=== PATIENT | male | born 1990 | race Caucasian/White ===

== ENCOUNTER 2019-02-18 21:09 | Emergency (ER) | payer OTHER ==
[2019-02-18] MEDS ORDERED: diphenhydrAMINE HCL 50 MG CAPSULE PO ONE (21:30)
--- NOTE | 2019-02-18 21:30 | PDOC ---
Rapid Medical Evaluation Time Seen by Provider: 02/18/19 21:28 Medical Evaluation: 02/18/19 21:28 I have performed a brief in-person evaluation of this patient. The patient presents with a chief complaint of: rash, itching, acute onset just now Pertinent physical exam findings: diffuse erythematous rash I have ordered the following: benadryl The patient will proceed to the ED for further evaluation. 02/18/19 21:37 pt now reports discomfort to throat and tongue. reassessed, no visible swelling to face/tongue/lips/mouth/uvula, no resp distress. meds changed to IV, escalated to level 3
[2019-02-18] MEDS ORDERED: DEXAMETHASONE LIQUID 0.5 MG/5 ML 240 ML BULK BOTTLE PO ONE (21:31)
[2019-02-18 21:32] VITALS: TEMP 98; BMI 29.1
[2019-02-18] MEDS ORDERED: DEXAMETHASONE SOD PHOSPHATE 10 MG/1 ML VIAL IVPUSH ONE (21:38)
[2019-02-18] MEDS ORDERED: DEXAMETHASONE SOD PHOSPHATE 10 MG/1 ML VIAL ONE (22:02)
[2019-02-18] MEDS ORDERED: diphenhydrAMINE HCL 25 MG CAPSULE (FP) PO ONE ×2 (22:03→22:12)
[2019-02-18] MEDS ORDERED: predniSONE 20 MG TABLET (UD) PO ONE (22:03)
[2019-02-18] MEDS ORDERED: predniSONE 20 MG TABLET (UD) ONE (22:12)
--- NOTE | 2019-02-18 23:16 | PDOC ---
History of Present Illness - General Chief Complaint: Allergic Reaction Stated Complaint: ALLEGIC REACTIUON Time Seen by Provider: 02/18/19 21:28 History Source: Patient Exam Limitations: No Limitations Past History - Past Medical History Allergies/Adverse Reactions: Allergies Allergy/AdvReac Type Severity Reaction Status Date / Time No Known Allergies Allergy Verified 02/18/19 21:32 Home Medications: Ambulatory Orders Prednisone [Deltasone] 40 mg PO DAILY #8 tablet 02/18/19 COPD: No CHF: No - Immunization History Immunization Up to Date: Yes - Suicide/Smoking/Psychosocial Hx Smoking History: Unknown if ever smoked Have you smoked in the past 12 months: No Information on smoking cessation initiated: No Hx Alcohol Use: No Drug/Substance Use Hx: No *Physical Exam - Vital Signs Last Vital Signs Temp Pulse Resp BP Pulse Ox 98.0 F 119 H 16 150/95 96 02/18/19 21:30 02/18/19 21:30 02/18/19 21:30 02/18/19 21:30 02/18/19 21:30 - Physical Exam General Appearance: No: Apparent Distress HEENT: positive: Pharynx Normal, Other (no angioedema) Respiratory/Chest: positive: Lungs Clear, Normal Breath Sounds. negative: Respiratory Distress Cardiovascular: positive: Regular Rhythm, Regular Rate, S1, S2. negative: Murmur Integumentary: positive: Hives, Rash. negative: Petechiae, Swelling, Ecchymosis , Bruising Neurologic: positive: Alert, Normal Mood/Affect ED Treatment Course - Medications Given in the ED: ED Medications Discontinued Medications Generic Name Dose Route Start Last Admin Trade Name Reddy PRN Reason Stop Dose Admin Dexamethasone 10 mg 02/18/19 21:31 02/18/19 22:10 Decadron Liquid - PO 02/18/19 21:32 Not Given ONCE ONE Dexamethasone Sodium Phosphate 10 mg 02/18/19 21:38 02/18/19 22:08 Decadron Injection - IVPUSH 02/18/19 21:39 Not Given ONCE ONE Diphenhydramine HCl 50 mg 02/18/19 21:30 02/18/19 22:10 Benadryl - PO 02/18/19 21:31 Not Given ONCE ONE Diphenhydramine HCl 50 mg 02/18/19 21:38 02/18/19 22:09 Benadryl Injection - IVPUSH 02/18/19 21:39 Not Given ONCE ONE Diphenhydramine HCl 50 mg 02/18/19 22:03 02/18/19 22:17 Benadryl - PO 02/18/19 22:04 50 mg ONCE ONE Administration Prednisone 60 mg 02/18/19 22:03 02/18/19 22:17 Deltasone - PO 02/18/19 22:04 60 mg ONCE ONE Administration Medical Decision Making - Medical Decision Making 28 y/o M with no sig pmh presents with diffuse itchy rash that started around 8 PM. States was eating food and the only thing new he ate was spicy mustard. Denies recent travel, use of new food/other products/meds, sob, cp, abd pain, n/ v/d. Allergic urticaria - given Benadryl and Prednisone On reassessment, notable improvement of rash Stable for dc 02/18/19 23:11 *DC/Admit/Observation/Transfer Diagnosis at time of Disposition: Allergic urticaria - Discharge Dispostion Disposition: HOME Condition at time of disposition: Stable Decision to Admit order: No - Prescriptions Prescriptions: Prednisone [Deltasone] 40 mg PO DAILY #8 tablet - Referrals - Patient Instructions Printed Discharge Instructions: DI for Hives Additional Instructions: Thank you for choosing [facility]. It was a pleasure taking care of you. Take Benadryl 25-50 mg every 6-8 hours as needed for rash Take Prednisone as prescribed Avoid spicy mustard Follow-up with your doctor in 2 days Return to the Emergency Department if your symptoms worsen or persist or other concerning symptoms. Trae por elegir el [facility]. Fue un placer cuidar de ti. [place] Benadryl 25-50 mg cada 6-8 horas segn sea necesario para la erupcin [place] Prednisone segn lo prescrito Evitar la mostaza picante Seguimiento con rudd mdico en 2 blanco. Regrese al Departamento de Emergencias si zia sntomas empeoran o persisten u otros sntomas relacionados. Print Language: TUVALUAN - Post Discharge Activity
--- NOTE | 2019-02-18 23:38 | PDOC ---
*Physical Exam - Vital Signs Last Vital Signs Temp Pulse Resp BP Pulse Ox 98.0 F 119 H 16 150/95 96 02/18/19 21:30 02/18/19 21:30 02/18/19 21:30 02/18/19 21:30 02/18/19 21:30 ED Treatment Course - Medications Given in the ED: ED Medications Discontinued Medications Generic Name Dose Route Start Last Admin Trade Name Reddy PRN Reason Stop Dose Admin Dexamethasone 10 mg 02/18/19 21:31 02/18/19 22:10 Decadron Liquid - PO 02/18/19 21:32 Not Given ONCE ONE Dexamethasone Sodium Phosphate 10 mg 02/18/19 21:38 02/18/19 22:08 Decadron Injection - IVPUSH 02/18/19 21:39 Not Given ONCE ONE Diphenhydramine HCl 50 mg 02/18/19 21:30 02/18/19 22:10 Benadryl - PO 02/18/19 21:31 Not Given ONCE ONE Diphenhydramine HCl 50 mg 02/18/19 21:38 02/18/19 22:09 Benadryl Injection - IVPUSH 02/18/19 21:39 Not Given ONCE ONE Diphenhydramine HCl 50 mg 02/18/19 22:03 02/18/19 22:17 Benadryl - PO 02/18/19 22:04 50 mg ONCE ONE Administration Prednisone 60 mg 02/18/19 22:03 02/18/19 22:17 Deltasone - PO 02/18/19 22:04 60 mg ONCE ONE Administration Medical Decision Making - Medical Decision Making 02/18/19 23:38 Case reviewed with BOBBY Henriquez Agree with assessment and plan *DC/Admit/Observation/Transfer Diagnosis at time of Disposition: Allergic urticaria - Discharge Dispostion Disposition: HOME Condition at time of disposition: Stable - Prescriptions Prescriptions: Prednisone [Deltasone] 40 mg PO DAILY #8 tablet - Referrals - Patient Instructions Printed Discharge Instructions: DI for Hives Additional Instructions: Thank you for choosing [facility]. It was a pleasure taking care of you. Take Benadryl 25-50 mg every 6-8 hours as needed for rash Take Prednisone as prescribed Avoid spicy mustard Follow-up with your doctor in 2 days Return to the Emergency Department if your symptoms worsen or persist or other concerning symptoms. Trae por elegir el [facility]. Fue un placer cuidar de ti. [place] Benadryl 25-50 mg cada 6-8 horas segn sea necesario para la erupcin [place] Prednisone segn lo prescrito Evitar la mostaza picante Seguimiento con rudd mdico en 2 blanco. Regrese al Departamento de Emergencias si zia sntomas empeoran o persisten u otros sntomas relacionados. Print Language: ROMANIAN - Post Discharge Activity
[2019-02-18 23:48] VITALS: BP 122/73; PULSE 90
== END 2019-02-18 23:48 | disposition home or self-care (01) ==
LOC: JER 21:09
DX: L50.0 Allergic urticaria (principal)
CPT/HCPCS: 99282-25

== ENCOUNTER 2019-04-08 11:21 | Emergency (ER) | payer OTHER ==
[2019-04-08 11:30] VITALS: BP 128/90; PULSE 98; TEMP 98; BMI 26.6
--- NOTE | 2019-04-08 12:19 | PDOC ---
History of Present Illness - General Chief Complaint: Cold Symptoms Stated Complaint: INSOMNIA Time Seen by Provider: 04/08/19 12:13 History Source: Patient - History of Present Illness Initial Comments: 04/08/19 12:33 Medical Biller [id number] Patient is a healthy 28-year-old male who states he's not been sleeping for 4 days due to nasal congestion which seems to have been getting worse, it started one month ago. No fever, no cough, no difficulty breathing. Patient also mentions that he had some diarrhea today, no vomiting and no fever. Patient appears well. GENERAL/CONSTITUTIONAL: No fever, weakness. dizziness HEAD, EYES, EARS, NOSE AND THROAT: No change in vision. No ear pain or discharge. No sore throat. CARDIOVASCULAR: No chest pain RESPIRATORY: No shortness of breath or cough GASTROINTESTINAL: No pain, nausea, vomiting, +diarrhea, no: constipation GENITOURINARY: No dysuria MUSCULOSKELETAL: No neck or back pain SKIN: No rash NEUROLOGIC: No headache, vertigo, loss of consciousness, or loss of sensation. GENERAL: The patient is awake, alert, and fully oriented, in no acute distress. HEAD: Normal with no signs of trauma. EYES: Pupils equal, round and reactive to light, sclera anicteric, conjunctiva clear. ENT: pharynx: no erythema, no exudate, uvula midline NECK: supple CHEST: clear, nontender, rr ABD: soft, nontender BACK: no tenderness or signs of injury EXTREMITIES: Normal range of motion, no edema. NEUROLOGICAL: Normal speech, normal gait. SKIN: Warm, Dry Past History - Past Medical History Allergies/Adverse Reactions: Allergies Allergy/AdvReac Type Severity Reaction Status Date / Time No Known Allergies Allergy Verified 04/08/19 11:29 Home Medications: Ambulatory Orders NK [No Known Home Medication] 04/08/19 COPD: No CHF: No - Immunization History Immunization Up to Date: Yes - Suicide/Smoking/Psychosocial Hx Smoking History: Never smoked Have you smoked in the past 12 months: No Information on smoking cessation initiated: No Hx Alcohol Use: No Drug/Substance Use Hx: No *Physical Exam - Vital Signs Last Vital Signs Temp Pulse Resp BP Pulse Ox 98 F 98 H 18 128/90 100 04/08/19 11:27 04/08/19 11:27 04/08/19 11:27 04/08/19 11:27 04/08/19 11:27 Medical Decision Making - Medical Decision Making 04/08/19 12:35 Healthy 28-year-old male, nonsmoker with 1 month of nasal congestion, he states it is worse in the last 4 days although he looks very comfortable. Patient also complaining of a few bouts of diarrhea today, no fever or vomiting and is able to drink and eat. Patient likely has ALLERGY related symptoms and patient will prefer a pill to a spray. We'll tell him to use Claritin-D once daily and take Benadryl at bedtime to help with sleeping. Also will tell him to follow breath diet and follow-up and give return instructions Discussed issues, findings, results, applicable medications and treatments and follow-up. All these were understood and all questions were answered *DC/Admit/Observation/Transfer Diagnosis at time of Disposition: Seasonal allergies Diarrhea Qualifiers: Diarrhea type: unspecified type Qualified Code(s): R19.7 - Diarrhea, unspecified - Discharge Dispostion Disposition: HOME Condition at time of disposition: Stable - Referrals - Patient Instructions Printed Discharge Instructions: Diarrhea Additional Instructions: You can use the Claritin-D once daily, you can take Benadryl 25-50 mg at bedtime any night it is needed to sleep. He should not need to take the Benadryl every night after a while. If you do you need to be reevaluated. If this does not work, you can try any other [id number] ALLERGY medicine or you can follow-up with your doctor or the ENT listed below. For the diarrhea, you should drink at least 2-3 L of fluid daily, eat simple foods like bread or toast, rice, applesauce and bananas Return to the ER if fever, vomiting or feeling ill Puede usar Claritin-D joann vez al da, puede holly Benadryl 25-50 mg a la hora de acostarse cualquier noche que sea necesario para dormir. No debera necesitar holly el Benadryl todas las noches despus de un tiempo. Si lo hace necesita ser reevaluado. Si esto no funciona, puede probar cualquier otro medicamento de ALERGIA de venta rafaela o puede hacer un seguimiento con rudd mdico o con el ENT que se detalla a continuacin. Para la diarrea, debe beber al menos 2-3 L de lquido al da, comer alimentos simples thea mallory o tostadas, arroz, compota de manzana y pltanos. Regrese a la jorge de emergencias si tiene fiebre, vmitos o malestar. Print Language: JAMAICAN - Post Discharge Activity
== END 2019-04-08 12:47 | disposition home or self-care (01) ==
LOC: JERFT 11:21 → JER 11:21 → JERFT 12:47
DX: J30.2 Other seasonal allergic rhinitis (principal)
CPT/HCPCS: 99281-25

== ENCOUNTER 2019-04-12 08:58 | Emergency (ER) | payer OTHER ==
[2019-04-12 09:02] VITALS: BP 143/89; PULSE 90; BMI 28.0
--- NOTE | 2019-04-12 09:22 | PDOC ---
History of Present Illness - General Chief Complaint: Lethargy Stated Complaint: ABD PAIN Time Seen by Provider: 04/12/19 09:03 History Source: Patient - History of Present Illness Timing/Duration: other Past History - Past Medical History Allergies/Adverse Reactions: Allergies Allergy/AdvReac Type Severity Reaction Status Date / Time No Known Allergies Allergy Verified 04/08/19 11:29 Home Medications: Ambulatory Orders Famotidine [Pepcid] 20 mg PO BID #28 tablet 04/12/19 COPD: No CHF: No - Immunization History Immunization Up to Date: Yes - Suicide/Smoking/Psychosocial Hx Smoking History: Smoker current status UNK Have you smoked in the past 12 months: No Hx Alcohol Use: No Drug/Substance Use Hx: No Review of Systems - Review of Systems Constitutional: No: Chills, Fever HEENTM: No: Nose Congestion Respiratory: No: Cough, Shortness of Breath Cardiac (ROS): No: Chest Pain ABD/GI: No: Blood Streaked Bowels, Nausea, Rectal Bleeding, Vomiting, Abdominal cramping, Tarry Stools : No: Dysuria Musculoskeletal: No: Back Pain, Joint Pain Neurological: No: Headache, Dizziness Psychiatric: Yes: Sleep Pattern Change *Physical Exam - Vital Signs Last Vital Signs Temp Pulse Resp BP Pulse Ox 90 18 143/89 99 04/12/19 09:01 04/12/19 09:01 04/12/19 09:01 04/12/19 09:01 - Physical Exam General Appearance: Yes: Appropriately Dressed. No: Apparent Distress HEENT: positive: Normal Voice Neck: positive: Supple Respiratory/Chest: positive: Lungs Clear, Normal Breath Sounds. negative: Respiratory Distress Cardiovascular: positive: Regular Rate, S1, S2 Gastrointestinal/Abdominal: positive: Soft. negative: Tender Integumentary: positive: Dry, Warm Neurologic: positive: Fully Oriented, Alert, Normal Mood/Affect Medical Decision Making - Medical Decision Making 04/12/19 09:38 28-year-old male, h/o GERD, here with complaint of insomnia. Patient states for the past several weeks, he has had difficulty staying asleep, mostly. States he gets tired around 10 PM and is able to fall asleep but wakes up usually around 1:00 am and has trouble staying asleep after that. Patient reports feeling anxious, mostly at nights. Denies history of depression and no SI or HI. Patient states there are no new stressors in his life and no recent life changes in general. Denies drug use, excessive alcohol use or new medications. Has been using various OTC sleep aid w/ no relief per pt. Patient states he had insomnia 15 years ago and was started on medicine for anxiety at the time, which did improve symptoms. Pt was seen in ED 5 days ago for same and was also c/o nasal congestion at the time. Was dx w/ seasonal allergies but Brandon any uri sxs at this time. Patient states he has an appointment with his PMD next Friday. Pt also req meds for his GERD today. No acute GI sxs at this time see exam Insomnia Etiology unclear, possible anxiety based on HPI No improvement w/ OTC sleep aids No new stressors/meds No SI/HI Stable for dc w/ PMD appt on Friday as already scheduled *DC/Admit/Observation/Transfer Diagnosis at time of Disposition: Insomnia Qualifiers: Insomnia type: unspecified Qualified Code(s): G47.00 - Insomnia, unspecified - Discharge Dispostion Disposition: HOME Condition at time of disposition: Stable - Prescriptions Prescriptions: Famotidine [Pepcid] 20 mg PO BID #28 tablet - Referrals - Patient Instructions Printed Discharge Instructions: Insomnia, Insomnia (Alternative Therapy), Treating Insomnia: A Look at Some Treatment Options, Mindful Meditation May Reduce Symptoms and Complications of Insomnia Additional Instructions: Te evaluaron por falta de sueo hoy. Hay muchas razones para esto, thea las condiciones de estilo de diane, thea rosie la televisin tarde, holly caf antes de acostarse, ansiedad, depresin, etc. No podemos recetarle ninguna sustancia controlada para dormir aqu en el servicio de urgencias. Deber hacer un seguimiento con rudd mdico en rudd prxima isacc programada el para joann evaluacin adicional. Los exmenes de tasha no reba necesarios hoy Te prescribimos pepcid para tu rfeflux cido hoy Print Language: ICELANDIC - Post Discharge Activity
== END 2019-04-12 09:32 | disposition home or self-care (01) ==
LOC: JERFT 08:58
DX: G47.00 Insomnia, unspecified (principal); K21.9 Gastro-esophageal reflux disease without esophagitis
CPT/HCPCS: 99281-25

== ENCOUNTER 2021-03-21 19:17 | Emergency (ER) | payer OTHER ==
[2021-03-21 19:30] VITALS: BP 139/89; PULSE 97; TEMP 98.5; BMI 27.8
== END 2021-03-21 22:33 | disposition home or self-care (01) ==
LOC: JER 19:17
DX: J01.80 Other acute sinusitis (principal)
CPT/HCPCS: 99283-25